=== PATIENT | female | born 1995 | race Caucasian/White ===

== ENCOUNTER 2022-03-12 08:22 | Inpatient (IN) ==
[~2022-03-12 08:22] MED LIST: CARBOPROST TROMETHAMINE 250 MCG/ML AMP IM PRN; METHYLERGONOVINE 0.2 MG/1 ML AMP IM PRN; OXYTOCIN/LR 20 UNIT/1,000 ML BAG IV ONE; TRANEXAMIC ACID 1,000 MG in SODIUM CHLORIDE 0.9% 100 ML IV PRN; miSOPROStoL 200 MCG TABLET RECTAL PRN
[2022-03-12] MEDS ORDERED: LACTATED RINGERS 1,000 ML IV SCH ×2 (08:30→09:00)
[2022-03-12] MEDS ORDERED: CITRIC ACID/SODIUM CITRATE 30 ML UDCUP PO ONE (08:42)
[2022-03-12] MEDS ORDERED: ePHEDrine 50 MG/ML VIAL IV PRN (08:42)
[2022-03-12] MEDS ORDERED: PROMETHAZINE 25 MG/1 ML VIAL IM ONE (08:42)
[2022-03-12] MEDS ORDERED: NALOXONE 0.4 MG/ML VIAL IV PRN (08:42)
[2022-03-12] MEDS ORDERED: ONDANSETRON 4 MG/2 ML VIAL IV ONE (08:42)
[2022-03-12] MEDS ORDERED: diphenhydrAMINE 50 MG/1 ML VIAL IV PRN ×2 (08:42)
[2022-03-12] MEDS ORDERED: hydrOXYzine HCL 25 MG/1 ML VIAL IM PRN (08:42)
[2022-03-12] MEDS ORDERED: FAMOTIDINE 20 MG/2 ML VIAL IV ONE ×2 (08:42→08:48)
[2022-03-12 08:43] LABS: Basophils % 0.3 % (0.0-0.8); Eosinophils % 0.2 % (0.00-10.9); Hematocrit 33.4 VOL% (35.7-47.0); Hemoglobin 11.1 GM/DL (12.0-16.0); Immature Granulocytes % 0.5 %; Immature Granulocytes Absolute 0.06 #; Lymphocytes # 2.1 10*3/uL (1.4-4.0); Lymphocytes % 17.9 % (21.3-54.2); Mean Corpuscular HGB Conc 33.2 GM/DL (32-36); Mean Corpuscular Volume 91.5 FL (87-102); Mean Platelet Volume 11.3 FL (9.6-12.0); Monocytes # 0.8 10*3/uL (0.11-0.8); Monocytes % 7.1 % (1.7-12.7); Platelet Count 134 T/CUMM (130-400); Red Blood Count 3.65 MC/CUMM (3.8-5.5); Red Cell Distribution Width 13.3 % (9.3-17.3); White Blood Count 11.9 T/CUMM (4-12)
[2022-03-12] MEDS ORDERED: CITRIC ACID/SODIUM CITRATE 30 ML UDCUP ONE (08:47)
[2022-03-12] MEDS ORDERED: ceFAZolin 2,000 MG/50 ML DUPLEX IV ONE (08:49)
[2022-03-12] MEDS ORDERED: BUPIVACAINE SPINAL 0.75% 2 ML AMP SPINAL ONE (08:55)
[2022-03-12] MEDS ORDERED: buprenorphine HCL 0.3 MG/ML VIAL ONE (08:55)
[2022-03-12] MEDS ORDERED: miSOPROStoL 200 MCG TABLET ONE (08:57)
[2022-03-12] MEDS ORDERED: CARBOPROST TROMETHAMINE 250 MCG/ML AMP IM ONE (08:57)
[2022-03-12] MEDS ORDERED: OXYTOCIN/LR 20 UNIT/1,000 ML BAG IV ONE (08:57)
[2022-03-12] MEDS ORDERED: METHYLERGONOVINE 0.2 MG/1 ML AMP ONE (08:57)
[2022-03-12 08:58] LABS: Calcium 8.9 MG/DL (8.5-10.1); Osmolality,Calculated 270.7 MOS/KG (273-304); Potassium 3.6 MMOL/L (3.5-5.1); Total Protein 6.9 G/DL (6.4-8.2)
[2022-03-12] MEDS ORDERED: fentaNYL 2 MCG/ROPIV 0.2% EPID 100 ML EPIDURAL SCH (09:00)
[2022-03-12] MEDS ORDERED: fentaNYL 100 MCG/2 ML VIAL ONE (09:41)
[2022-03-12 09:44] LABS: Cord Arterial Blood HCO3 21.3 MMOL/L
[2022-03-12 09:47] LABS: Cord Venous Blood HCO3 22.1 MMOL/L; Cord Venous Blood PCO2 47.9 MMHG; Cord Venous Blood PO2 28.4
[2022-03-12] MEDS ORDERED: ACETAMINOPHEN INJ 1,000 MG/100 ML VIAL IV ONE (09:57)
[2022-03-12] MEDS ORDERED: ONDANSETRON 4 MG/2 ML VIAL ONE (09:57)
[2022-03-12] MEDS ORDERED: LACTATED RINGERS 1,000 ML IV ONE (09:57)
[2022-03-12] MEDS ORDERED: PHENYLEPHRINE 1 MG/10 ML SYRINGE IV ONE (09:58)
[2022-03-12] MEDS: KETOROLAC 30 MG/1 ML VIAL IV PRN ×2 (14:20→20:33)
[2022-03-12] MEDS ORDERED: ACETAMINOPHEN 500 MG TABLET ONE (20:26)
[2022-03-12] MEDS: ACETAMINOPHEN 500 MG TABLET PO PRN (20:36)
[2022-03-13] MEDS: IBUPROFEN 800 MG TABLET PO PRN ×2 (02:30→08:46)
[2022-03-13] MEDS: ACETAMINOPHEN 500 MG TABLET PO PRN ×2 (02:30→13:03)
[2022-03-13 05:28] LABS: Basophils % 0.3 % (0.0-0.8); Eosinophils # 0.1 10*3/uL (0.0-0.87); Eosinophils % 0.5 % (0.00-10.9); Hematocrit 25.6 VOL% (35.7-47.0); Hemoglobin 8.3 GM/DL (12.0-16.0); Immature Granulocytes % 0.6 %; Immature Granulocytes Absolute 0.06 #; Lymphocytes # 2.1 10*3/uL (1.4-4.0); Lymphocytes % 19.5 % (21.3-54.2); Mean Corpuscular HGB Conc 32.4 GM/DL (32-36); Mean Corpuscular Volume 93.1 FL (87-102); Mean Platelet Volume 11.7 FL (9.6-12.0); Monocytes # 0.9 10*3/uL (0.11-0.8); Neutrophils % 70.1 % (38.7-73.9); Platelet Count 120 T/CUMM (130-400); Red Blood Count 2.75 MC/CUMM (3.8-5.5); Red Cell Distribution Width 13.6 % (9.3-17.3); White Blood Count 10.5 T/CUMM (4-12)
[2022-03-13 07:00] LABS: Anisocytosis 1+; Platelet Estimate Adequate; Tear Drop Cells Slight
[2022-03-13] MEDS: FERROUS SULFATE 325 MG TABLET PO SCH ×2 (08:46→21:01)
[2022-03-13 10:05] LABS: Hematocrit 27.2 VOL% (35.7-47.0)
[2022-03-13] MEDS ORDERED: LORazepam 0.5 MG TABLET PO ONE (15:30)
[2022-03-13 15:48] LABS: Bilirubin,Total 0.5 MG/DL (0.20-1.00); Calcium 8.2 MG/DL (8.5-10.1); Free T4 (Free Thyroxine) 0.84 NG/DL (0.76-1.46); Osmolality,Calculated 280.1 MOS/KG (273-304); Potassium 3.2 MMOL/L (3.5-5.1); Thyroid Stimulating Hormone 1.85 uIU/ml (0.358-3.74); Total Protein 4.8 G/DL (6.4-8.2)
[2022-03-13] MEDS ORDERED: POTASSIUM CHLORIDE RIDER 10 MEQ/100 ML PREMIX IV PRN (17:19)
[2022-03-13] MEDS: POTASSIUM CHLORIDE 20 MEQ TABLET PO PRN ×2 (18:04→21:01)
[2022-03-13] MEDS: ONDANSETRON 4 MG/2 ML VIAL IV PRN (19:43)
[2022-03-13] MEDS ORDERED: MAGNESIUM HYDROXIDE SUSP 30 ML UDCUP PO PRN (20:42)
[2022-03-13] MEDS: DOCUSATE SODIUM 100 MG CAPSULE PO SCH (21:01)
[2022-03-13] MEDS: SIMETHICONE CHEW 80 MG TABLET PO PRN (23:05)
[2022-03-14] MEDS: POTASSIUM CHLORIDE 20 MEQ TABLET PO PRN ×2 (01:39→03:32)
[2022-03-14] MEDS: ONDANSETRON 4 MG/2 ML VIAL IV PRN (01:45)
[2022-03-14] MEDS: IBUPROFEN 800 MG TABLET PO PRN ×2 (03:44→12:29)
[2022-03-14] MEDS: SIMETHICONE CHEW 80 MG TABLET PO PRN (08:32)
[2022-03-14] MEDS: DOCUSATE SODIUM 100 MG CAPSULE PO SCH (09:45)
[2022-03-14] MEDS: FERROUS SULFATE 325 MG TABLET PO SCH (12:25)
[2022-03-14 17:21] VITALS: BP 115/65
== END 2022-03-14 18:25 | disposition home or self-care (01) | DRG 788 ==
LOC: N.LD → N.OB 13:09
PROVIDERS: ADMIT Obstetrics & Gynecology; ATTEND Obstetrics & Gynecology
PROC: LDCSECT (ICD-10-PCS; 2022-03-12 09:00)